=== PATIENT | female | born 1930 | race Caucasian/White ===

== ENCOUNTER 2019-08-11 14:14 | Inpatient (IN) ==
--- NOTE | 2019-08-11 14:32 | Emergency Department Note ---
ED Disposition Clinical Impression: Dehydration, Hypernatremia, Severe sepsis Urinary tract infection Qualifiers: Urinary tract infection type: site unspecified Hematuria presence: without hematuria Qualified Code(s): N39.0 - Urinary tract infection, site not specified Disposition: Admitted As Inpatient Condition on Discharge: Serious Referrals: Provider,Referral, [Referring] - - Critical Care Critical Care Time: No Attestation: On 08/11/19, the high probability of a clinically significant, sudden or life threatening deterioration of the following system(s) required my full and direct attention, intervention and personal management. The time I documented below is in addition to time spent performing reported procedures but includes the following listed in this critical care notation. Medical Decision Making - Vikas Inquiry Pt receiving controlled substance: No Vital Signs: 08/11/19 14:15 08/11/19 15:19 08/11/19 16:16 Temperature 97.6 F Temperature Source Rectal Pulse Rate [Right Radial] 97 H 94 H 91 H Respiratory Rate 18 Blood Pressure [Right Arm] 116/79 147/99 H 185/78 H Blood Pressure Mean [Right Arm] 91 115 113 Blood Pressure Source [Right Arm] Automatic Cuff Blood Pressure Position [Right Arm] Supine 02 Sat by Pulse Oximetry 96 97 99 Oxygen Delivery Method Nasal Cannula Oxygen Flow Rate (LPM) 2 - Lab Data Lab Results 08/11/19 14:17: Urine Color Yellow, Urine Appearance Clear, Urine pH 5.5, Ur Specific [place] 1.020, Urine Protein 2+, Urine Glucose (UA) Negative, Urine Ketones Negative, Urine Blood 2+, Urine Nitrate Negative, Urine Bilirubin Negative, Urine Urobilinogen 0.2, Ur Leukocyte Esterase 2+ A, Urine RBC 5-10, Urine WBC 50-100, Ur Squamous Epith Cells 20-50, Ur Transition Epith Cell 5-10, Amorphous Sediment 2+, Urine Bacteria None 08/11/19 14:30: WBC 19.9 H, RBC 5.62 H, Hgb 16.2, Hct 54.5 H, MCV 97.1, MCH 28.9, MCHC 29.8 L, RDW 15.8, Plt Count 316, MPV 9.8, Neut % (Auto) 87.1 H, Lymph % (Auto) 9.0 L, Bennett % (Auto) 2.9, Eos % (Auto) 0.2, Baso % (Auto) 0.7, Neut # (Auto) 17.7 H, Lymph # (Auto) 1.8, Bennett # (Auto) 0.6, Eos # (Auto) 0.1, Baso # (Auto) 0.2, Total Counted 100, Neutrophils % (Manual) 79 H, Lymphocytes % (Manual) 17, Monocytes % (Manual) 4, Platelet Estimate Normal, RBC Morphology Normal 08/11/19 14:30: Sodium 181 H*, Potassium 3.8, Chloride 140 H, Carbon Dioxide 26, Anion Gap 18.8 H, BUN 81 H, Creatinine 1.67 H, Estimated Creat Clear 23, Estimated GFR 29 L, Est GFR ( Amer) 35 L, Glucose 159 H, Calcium 9.4, Total Bilirubin 0.7, AST 53 H, ALT 28, Alkaline Phosphatase 105, Troponin I < 0.02, Total Protein 9.0 H, Albumin 3.1 L, Globulin 5.9 H, Albumin/Globulin Ratio 0.5 L 08/11/19 14:30: Lactate 3.3 H Result diagrams: 08/11/19 14:30 08/11/19 14:30 Orders (Tests/Meds): ED MEDICATIONS Generic Name Dose Route Start Last Admin Trade Name Freq PRN Reason Stop Dose Admin Ceftriaxone Sodium 1 gm/ 50 mls @ 100 mls/hr 08/11/19 15:45 08/11/19 15:51 Sodium Chloride IV 08/25/19 15:44 100 mls/hr Q24H REINIER Administration Protocol Discontinued Medications Generic Name Dose Route Start Last Admin Trade Name Freq PRN Reason Stop Dose Admin Sodium Chloride 1,000 mls @ 999 mls/hr 08/11/19 15:30 08/11/19 15:31 Sod Chlor 0.9% 1000ml Bag IV 08/11/19 16:30 999 mls/hr .Q1H1M REINIER Administration ORDERS Category Date Time Status Troponin I Q3H Lab 08/11/19 17:30 Ordered Troponin I Q3H Lab 08/11/19 20:30 Ordered Blood Culture Stat Micro 08/11/19 14:30 Received Urine Culture Stat Micro 08/11/19 14:17 Received Wound Culture and Gram Stain Stat Micro 08/11/19 14:20 Results - Radiology Data #1 Image(s): Chest Image Reviewed: Yes I reviewed the patient's radiology image Elevated right diaphragm, no acute disease - ECG Data Tracing #1 EKG interpreted by Michael Caban MD: Rhythm: sinus Rate: 94 Leon: normal Ectopy: none Conduction: Short CO [address] Segment Changes: none T Wave Changes: none Q Waves: Inferior For R wave progression. Low voltage QRS No prior EKGs available for comparison. - Physician Consults Physician Consulted: María for Dr. Troy Time: 17:42 Reason -: Admission Comment/Response: I had a long discussion with Dr. Daniel. He preferred that the patient be transferred to a tertiary care center due to the magnitude of her hypernatremia. I had a long discussion also with the family and with the patient's son by phone. The patient's son is a family physician in [place]. They do not want the patient transferred. They understand poor prognosis and risk of and are okay with that. She is DNR. They are agreeable to IV fluids and antibiotics. They state that family even had a discussion as to whether to transfer her from the [facility] to the emergency room, family members preferred not to except for the who wanted her transported here. Agrees to admit the patient to the hospital. We discussed the patient's clinical information, including history, exam, laboratory and radiology results and ED course. Per hospital procedure, I will write temporary bridge inpatient orders on the patient. Specific orders requested by the admitting physician: Bolus an additional 1 L lactated Ringer's. D5 one half normal saline at 100 cc/h. Recheck electrolytes every 6 hours. Continue Rocephin. General Adult HPI - General Chief complaint: Altered Mental Status Stated complaint: lethargic Time Seen by Provider: 08/11/19 14:15 - History of Present Illness HPI narrative: Brought in by ambulance from [facility]. She is nonverbal. Reported history is that she is being sent in for being lethargic and not eating. Records sent from [facility] with the patient show that she had lab work done today which showed a white blood cell count of 19.3, BUN 76 creatinine 1.3, sodium 183. - Related Data Home Medications Medication Instructions Recorded Confirmed Acetaminophen 500 mg PO BID 08/11/19 08/11/19 Ascorbic Acid [Vitamin C] 500 mg PO DAILY 08/11/19 08/11/19 Lactulose [Lactulose 10gm/15ml 30 ml PO DAILY 08/11/19 08/11/19 Oral Soln] Loratadine [Claritin] 10 mg PO DAILY 08/11/19 08/11/19 Mirtazapine 7.5 mg PO HS 08/11/19 08/11/19 Allergies Allergy/AdvReac Type Severity Reaction Status Date / Time Penicillins Allergy Verified 09/29/18 12:19 pergogesic Allergy Uncoded 09/29/18 12:19 [facility] History - Hepatitis A Screen Attestation statement:: This patient has been screened for Hepatitis A risk factors. I have reviewed the patient's past medical history: Yes Medical History: Denies:: Diabetes Mellitus Type 1, Diabetes Mellitus Type 2 - Social History Alcohol Intake: never Occupational Status: retired, disabled ROS Obtained: Yes unobtainable due to mental status Physical Exam - General General appearance: other Comment: Lays with eyes closed. Does not follow any commands. Nonverbal. Does not open eyes to command, but when I try to open her eyes manually, she squints them closed. No distress. Debilitated. Moves both upper extremities to painful stimulus, does not move lower extremities. - Head Head exam: atraumatic, normocephalic - Eye Eye exam: Present: PERRL, EOMI - ENT ENT exam: Present: mucous membranes dry, other (Dried food on teeth and mucous membranes) - Neck Neck exam: Present: normal inspection, trachea midline - Chest Chest inspection: Present: normal inspection, symmetric chest wall rise - Respiratory Respiratory exam: Present: normal lung sounds bilaterally. Absent: respiratory distress - Cardiovascular Cardiovascular exam: Present: regular rate, normal rhythm - Abdominal Exam Abdominal exam: Present: soft. Absent: distention, guarding - Extremities Exam Extremities exam: Present: normal capillary refill - Neurological Exam Neurological exam: Present: other (See general appearance) - Skin Skin exam: Present: warm, dry - Other Other exam information: Left hand is edematous. There are vesicles on the palm of the hand which contain clear fluid. There is a small superficial laceration on the dorsum of the left hand which has Steri-Strips in place. There is erythema of all of the fingers and most of the hand. No ascending lymphangitis.
[2019-08-11 14:43] LABS: Microscopic, Urine URINE MICROSCOPIC (MICROSCOPIC)
[2019-08-11 14:44] LABS: Appearance,Urine CLEAR (Clear); Bilirubin,Urine Negative (Negative); Blood, Urine 2+ (Negative); Color,Urine YELLOW (Yellow); Glucose,Urine (UA) Negative (Negative); Ketones,Urine Negative (Negative); Leukocyte Esterase,Urine 2+ (Negative); PH,Urine 5.5 (5.0-8.5); Protein,Urine 2+ (Negative); Urobilinogen,Urine 0.2 EU/dl (0.2)
[2019-08-11 14:46] LABS: Basophils # 0.2 K/mm3 (0-0.2); Basophils % 0.7 % (0.1-2.0); Eosinophils # 0.1 K/mm3 (0.0-0.4); Eosinophils % 0.2 % (0.1-12.0); Hematocrit 54.5 % (37.0-47.0); Hemoglobin 16.2 g/dL (12.2-16.2); Lymphocytes # 1.8 K/mm3 (0.7-4.5); Mean Corpuscular HGB Conc 29.8 g/dL (31.8-35.4); Mean Corpuscular Volume 97.1 fl (81-99); Mean Platelet Volume 9.8 fl (7.4-10.4); Monocytes # 0.6 K/mm3 (0.1-1.0); Monocytes % 2.9 % (1.7-9.3); Neutrophils # 17.7 K/mm3 (1.8-7.8); Neutrophils % 87.1 % (37.0-80.0); Platelet Count 316 K/mm3 (142-424); Red Blood Count 5.62 M/mm3 (4.20-5.40); Red Cell Distribution Width 15.8 % (11.5-17.5)
[2019-08-11 14:50] LABS: White Blood Count 19.9 K/mm3 (4.8-10.8)
[2019-08-11 15:02] LABS: Amorphous Sediment,Urine 2+ /lpf; Squamous Epithelial Cell,Urine 20-50 #/hpf (0-5); WBC,Urine 50-100 #/hpf (0-3)
[2019-08-11 15:02] LABS: Alanine Aminotransferase 28 U/L (9-52); Albumin Level 3.1 g/dL (3.4-5.0); Albumin/Globulin Ratio 0.5 (1.1-1.8); Alkaline Phosphatase 105 U/L (46-116); Aspartate Amino Transferase 53 U/L (15-37); Bilirubin,Total 0.7 mg/dL (0.2-1.0); Calcium 9.4 mg/dL (8.5-10.1); Carbon Dioxide 26 mmol/L (21.0-32.0); Globulin 5.9 gm/dl (1.3-3.2); Glucose 159 mg/dL (74-106)
[2019-08-11 15:03] LABS: Lymphocytes % 17 % (10-50); Monocytes % 4 % (2-9); Neutrophils % 79 % (42-76); Total Cells Counted 100
[2019-08-11 15:04] LABS: RBC Morphology Normal
[2019-08-11 15:07] LABS: Chloride 140 mmol/L (98-107)
[2019-08-11 15:14] LABS: Anion Gap 18.8 mEq/L (5-15)
[2019-08-11 15:16] LABS: Blood Urea Nitrogen 81 mg/dL (7-18); Sodium 181 mmol/L (137-145)
--- NOTE | 2019-08-11 19:17 | History & Physical Report ---
*Admission Date: 08/11/19 *Chief complaint: Obtundation, dehydration [facility] History Medical History: Denies:: Diabetes Mellitus Type 1, Diabetes Mellitus Type 2 *Have you ever received a pneumonia vaccine?: No (unknown) *Have you received a flu vaccine this season?: No (unknown) - *Social History Smoking Status: Unknown if ever smoked Alcohol Intake: never *Occupational Status:: other *Travel in the last 8 weeks: None Meds Home Medications Medication Instructions Recorded Confirmed Type Acetaminophen 500 mg PO BID 08/11/19 08/11/19 History Ascorbic Acid [Vitamin C] 500 mg PO DAILY 08/11/19 08/11/19 History Lactulose [Lactulose 10gm/15ml 30 ml PO DAILY 08/11/19 08/11/19 History Oral Soln] Loratadine [Claritin] 10 mg PO DAILY 08/11/19 08/11/19 History Mirtazapine 7.5 mg PO HS 08/11/19 08/11/19 History Allergies Allergy/AdvReac Type Severity Reaction Status Date / Time Penicillins Allergy Verified 09/29/18 12:19 pergogesic Allergy Uncoded 09/29/18 12:19 Exam Vital signs and Labs for Last 24 Hours: Temp Pulse Resp BP Pulse Ox 98 F 80 18 140/80 98 08/11/19 18:57 08/11/19 18:57 08/11/19 18:57 08/11/19 18:57 08/11/19 17:52 Laboratory Results - last 24 hr 08/11/19 14:17: Urine Color Yellow, Urine Appearance Clear, Urine pH 5.5, Ur Specific [place] 1.020, Urine Protein 2+, Urine Glucose (UA) Negative, Urine Ketones Negative, Urine Blood 2+, Urine Nitrate Negative, Urine Bilirubin Negative, Urine Urobilinogen 0.2, Ur Leukocyte Esterase 2+ A, Urine RBC 5-10, Urine WBC 50-100, Ur Squamous Epith Cells 20-50, Ur Transition Epith Cell 5-10, Amorphous Sediment 2+, Urine Bacteria None 08/11/19 14:30: WBC 19.9 H, RBC 5.62 H, Hgb 16.2, Hct 54.5 H, MCV 97.1, MCH 28.9, MCHC 29.8 L, RDW 15.8, Plt Count 316, MPV 9.8, Neut % (Auto) 87.1 H, Lymph % (Auto) 9.0 L, [place] % (Auto) 2.9, Eos % (Auto) 0.2, Baso % (Auto) 0.7, Neut # (Auto) 17.7 H, Lymph # (Auto) 1.8, [place] # (Auto) 0.6, Eos # (Auto) 0.1, Baso # (Auto) 0.2, Total Counted 100, Neutrophils % (Manual) 79 H, Lymphocytes % (Manual) 17, Monocytes % (Manual) 4, Platelet Estimate Normal, RBC Morphology Normal 08/11/19 14:30: Sodium 181 H*, Potassium 3.8, Chloride 140 H, Carbon Dioxide 26, Anion Gap 18.8 H, BUN 81 H, Creatinine 1.67 H, Estimated Creat Clear 23, Estimated GFR 29 L, Est GFR ( Amer) 35 L, Glucose 159 H, Calcium 9.4, Total Bilirubin 0.7, AST 53 H, ALT 28, Alkaline Phosphatase 105, Troponin I < 0.02, Total Protein 9.0 H, Albumin 3.1 L, Globulin 5.9 H, Albumin/Globulin Ratio 0.5 L 08/11/19 14:30: Lactate 3.3 H I & O for Last 24 hours: Intake & Output 08/08/19 08/09/19 08/10/19 08/11/19 23:59 23:59 23:59 23:59 Weight 62.596 kg Microbiology Reports for the Last 24 Hours: Microbiology 08/11/19 14:20 Hand,Left - Wound Gram Stain - Final
[2019-08-11 21:19] LABS: Anion Gap 17.2 mEq/L (5-15)
[2019-08-11 21:20] LABS: Calcium 8.4 mg/dL (8.5-10.1)
--- NOTE | 2019-08-12 00:28 | History & Physical Report ---
*Admission Date: 08/11/19 *Chief complaint: AMS, obtunded, dehydrated *History of present illness: Patient was assessed on 08/11/2019 at 6:15 PM. Ms. Lan is an 89-year-old female who resides at [facility] and has severely advanced Alzheimer's. She presented to the ER at the request of her due to obtundation and altered breathing. Of note she is dependent on nursing and her for full ADL support including feeding and drinking. Her daughters and son-in-law are at bedside on interview in the ER. Family reports that the patient has become more altered over the past week with change in her breathing pattern, less responsive to stimuli, and showing significant decline. Upon arrival to the ER she was noted to have severely elevated sodium of 181 and chloride of 140. Free water deficit of approximately 8 L. Patient is DNR and the family was very adamant that they did not want her transferred to a tertiary care center for higher level of care. They preferred for her to be admitted locally with treatment for her conditions understanding that this is not the optimal situation and she is at high risk for decline or serious complication. On my assessment she was nonresponsive to verbal commands. Groaned with abdominal exam but otherwise did not withdraw or localize to painful stimuli. Pupils poorly reactive, not fixed or dilated either. Further review of ER work-up shows that she has severe sepsis with elevated lactate, acute renal failure, concern for UTI, market hyp ernatremia/hyperchloremia, and severe dehydration. Given patient's baseline end-stage Alzheimer's, I had a discussion with family about goals of care and this likely being part of the dying process. They stated understanding and wanted to initially treat her sepsis with antibiotics and hypernatremia with fluid resuscitation. Admitted to ICU for further management and close observation of electrolyte correction. [facility] History I have reviewed the patient's past medical history: Yes (Per family) Medical History: Reports:: Hyperlipidemia, Hypertension Denies:: Diabetes Mellitus Type 1, Diabetes Mellitus Type 2 *Have you ever received a pneumonia vaccine?: Yes (UNABLE TO DETERMINE R/T UNABLE TO COMMUNICATE. PT IS FROM [facility] F[facility]ILITY.) *Have you received a flu vaccine this season?: Yes (UNABLE TO DETERMINE R/T UNABLE TO COMMUNICATE. PT IS FROM [facility] FACILITY.) Comment:: Alzheimer disease - *Social History Smoking Status: Unknown if ever smoked Alcohol Intake: never *Occupational Status:: retired Housing: correction *Travel in the last 8 weeks: None Family Hx:: Unable to obtain Review of Systems - Review of Systems Review of systems:: unable to obtain (Due to patient obtundation) Meds Home Medications Medication Instructions Recorded Confirmed Type Acetaminophen 500 mg PO BID 08/11/19 08/11/19 History Ascorbic Acid [Vitamin C] 500 mg PO DAILY 08/11/19 08/11/19 History Lactulose [Lactulose 10gm/15ml 30 ml PO DAILY 08/11/19 08/11/19 History Oral Soln] Loratadine [Claritin] 10 mg PO DAILY 08/11/19 08/11/19 History Mirtazapine 7.5 mg PO HS 08/11/19 08/11/19 History Allergies Allergy/AdvReac Type Severity Reaction Status Date / Time Penicillins Allergy Verified 09/29/18 12:19 pergogesic Allergy Uncoded 09/29/18 12:19 Exam Vital signs and Labs for Last 24 Hours: Temp Pulse Resp BP Pulse Ox 97.5 F L 80 22 131/52 L 99 08/11/19 20:00 08/11/19 22:00 08/11/19 22:00 08/11/19 22:00 08/11/19 22:00 Laboratory Results - last 24 hr 08/11/19 14:17: Urine Color Yellow, Urine Appearance Clear, Urine pH 5.5, Ur Specific [place] 1.020, Urine Protein 2+, Urine Glucose (UA) Negative, Urine Ketones Negative, Urine Blood 2+, Urine Nitrate Negative, Urine Bilirubin Negative, Urine Urobilinogen 0.2, Ur Leukocyte Esterase 2+ A, Urine RBC 5-10, Urine WBC 50-100, Ur Squamous Epith Cells 20-50, Ur Transition Epith Cell 5-10, Amorphous Sediment 2+, Urine Bacteria None 08/11/19 14:30: WBC 19.9 H, RBC 5.62 H, Hgb 16.2, Hct 54.5 H, MCV 97.1, MCH 28.9, MCHC 29.8 L, RDW 15.8, Plt Count 316, MPV 9.8, Neut % (Auto) 87.1 H, Lymph % (Auto) 9.0 L, Gonzales % (Auto) 2.9, Eos % (Auto) 0.2, Baso % (Auto) 0.7, Neut # (Auto) 17.7 H, Lymph # (Auto) 1.8, Gonzales # (Auto) 0.6, Eos # (Auto) 0.1, Baso # (Auto) 0.2, Total Counted 100, Neutrophils % (Manual) 79 H, Lymphocytes % (Manual) 17, Monocytes % (Manual) 4, Platelet Estimate Normal, RBC Morphology Normal 08/11/19 14:30: Sodium 181 H*, Potassium 3.8, Chloride 140 H, Carbon Dioxide 26, Anion Gap 18.8 H, BUN 81 H, Creatinine 1.67 H, Estimated Creat Clear 23, Estimated GFR 29 L, Est GFR ( Amer) 35 L, Glucose 159 H, Calcium 9.4, Total Bilirubin 0.7, AST 53 H, ALT 28, Alkaline Phosphatase 105, Troponin I < 0.02, Total Protein 9.0 H, Albumin 3.1 L, Globulin 5.9 H, Albumin/Globulin Ratio 0.5 L 08/11/19 14:30: Lactate 3.3 H 08/11/19 19:05: Lactate 2.5 H 08/11/19 21:03: Sodium 179 H*, Potassium 3.2 L, Chloride 141 H, Carbon Dioxide 24, Anion Gap 17.2 H, BUN 73 H, Creatinine 1.45 H, Estimated Creat Clear 25, Estimated GFR 34 L, Est GFR ( Amer) 41 L, Glucose 203 H D, Calcium 8.4 L D 08/11/19 21:03: Lactate 2.0 I & O for Last 24 hours: Intake & Output 08/09/19 08/10/19 08/11/19 08/12/19 23:59 23:59 23:59 23:59 Intake Total 536 / 536 Output Total 625 / 625 Balance -89 / -89 Weight 60.328 kg Microbiology Reports for the Last 24 Hours: Microbiology 08/11/19 14:20 Hand,Left - Wound Gram Stain - Final - Constitutional moderate distress, cachectic, chronically ill appearing, disheveled, obtunded - *Routine HEENT Exam Comments: Pupils equal and round, sluggish with minimal response to bright light, she was trying to close her eyes as I open them on exam; loss of bitemporal fat and periorbital fat. Mucous membranes dry - *Routine Neck Exam Present: supple. Absent: lymphadenopathy - *Routine Respiratory Exam Present: CTA bilaterally. Absent: rhonchi, wheezes, crackles - *Routine Cardiovascular Exam Present: tachycardia. Absent: murmur - *Routine Abdominal Exam Present: soft, normoactive bowel sounds, tenderness (Crohn's with palpation diffusely) - *Routine Extremities Exam Present: edema (Trace). Absent: cyanosis, clubbing Comments: Large blister and palm of left hand with serous fluid - *Routine Skin Exam Present: dry, pallor, warm. Absent: rash - *Routine Neurological Exam Present: altered mental status Intermittent tremor in right hand no focalization to, painful stimuli, GCS 3 (1,1,1) Assessment and Plan (1) Alzheimer disease Current visit: Yes Status: Chronic Qualifiers: Alzheimer's disease onset: late-onset Dementia behavioral disturbance: with behavioral disturbance Qualified Code(s): G30.1 - Alzheimer's disease with late onset; F02.81 - Dementia in other diseases classified elsewhere with behavioral disturbance Category: Medical Code(s): G30.9 - Alzheimer's disease, unspecified; F02.80 - Dementia in other diseases classified elsewhere without behavioral disturbance Severe stage VII Alzheimer's. Discussed patient's status with family. At this time I feel her progression is terminal. Her current condition is likely sequela of that progression. While we discussed goals of care during admission for treating the acute issues that are present, we will continue to have discussions with family moving forward as we discussed disposition pending response to treatment for potential transition to hospice/hospice-like care at time of discharge. (2) Hyperchloremia Current visit: Yes Status: Acute Category: Medical Code(s): E87.8 - Other disorders of electrolyte and fluid balance, not elsewhere classified (3) Acute kidney failure Current visit: Yes Status: Acute Qualifiers: Acute renal failure type: unspecified Qualified Code(s): N17.9 - Acute kidney failure, unspecified Category: Medical Code(s): N17.9 - Acute kidney failure, unspecified (4) Dehydration Current visit: Yes Status: Acute Category: Medical Code(s): E86.0 - Dehydration (5) Hypernatremia Current visit: Yes Status: Acute Category: Medical Code(s): E87.0 - Hyperosmolality and hypernatremia (6) Severe sepsis Current visit: Yes Status: Acute Category: Medical Code(s): A41.9 - Sepsis, unspecified organism; R65.20 - Severe sepsis without septic shock (7) Urinary tract infection Current visit: Yes Status: Acute Qualifiers: Urinary tract infection type: site unspecified Hematuria presence: without hematuria Qualified Code(s): N39.0 - Urinary tract infection, site not specified Category: Medical Code(s): N39.0 - Urinary tract infection, site not specified - Assessment and plan all Dx Assessment and Plan for all problems:: Critically ill 89-year-old female with severe electrolyte disturbances, dehydration, severe sepsis, UTI, endorgan dysfunction with elevated lactate. Free water deficit approximately 8.4 L. Initiated on D5 half-normal saline at 140 an hour with goal of correction of 10 to 12 mEq in 24 hours. Close monitoring with labs every 6 hours for the first 24 hours. Additionally given a dose of ceftriaxone for her sepsis and UTI. Cultures obtained and pending. Extensive discussion about severity of patient's illness with family. At this time we will take her care today at a time as her condition is tenuous at best with high probability of adverse event including but not limited to seizures, cerebral edema, respiratory distress, or . Family is very clear that they do not want aggressive measures taken to save her life if she were to go into cardiac or respiratory arrest however they do want to treat the acute issues and. They appear to have good insight and understanding of her current condition, and understand our plan moving forward. Admitted to ICU for further management. Usual precautions. DNR. N.p.o.
[2019-08-12 03:08] LABS: Calcium 8.4 mg/dL (8.5-10.1); Phosphorous 3.4 mg/dL (2.4-4.9)
[2019-08-12 03:22] LABS: Anion Gap 17.5 mEq/L (5-15)
[2019-08-12 10:01] LABS: Basophils % 0.1 % (0.1-2.0); Eosinophils % 0.1 % (0.1-12.0); Hematocrit 41.6 % (37.0-47.0); Lymphocytes # 1.7 K/mm3 (0.7-4.5); Mean Corpuscular HGB Conc 30.9 g/dL (31.8-35.4); Mean Corpuscular Volume 94.3 fl (81-99); Mean Platelet Volume 10.5 fl (7.4-10.4); Monocytes # 0.4 K/mm3 (0.1-1.0); Monocytes % 1.6 % (1.7-9.3); Neutrophils # 21.8 K/mm3 (1.8-7.8); Platelet Count 203 K/mm3 (142-424); Red Blood Count 4.41 M/mm3 (4.20-5.40); Red Cell Distribution Width 14.8 % (11.5-17.5); White Blood Count 23.9 K/mm3 (4.8-10.8)
[2019-08-12 10:21] LABS: Albumin Level 2.3 g/dL (3.4-5.0); Albumin/Globulin Ratio 0.5 (1.1-1.8); Bilirubin,Total 0.7 mg/dL (0.2-1.0); Calcium 7.9 mg/dL (8.5-10.1); Globulin 4.5 gm/dl (1.3-3.2); Total Protein,Serum 6.8 g/dL (6.4-8.2)
--- NOTE | 2019-08-12 10:24 | Pharmacy Consult Notes ---
[facility] Pharmacy VTE Monitoring - Patient Demographics Admission date: 08/12/19 Report Date: 08/12/19 Time: 10:23 Allergies/Adverse Reactions: Patient Allergies acetaminophen [From Percogesic] Allergy (Verified 08/12/19 08:12) Unknown allergy reaction diphenhydramine [From Percogesic] Allergy (Verified 08/12/19 08:12) Unknown allergy reaction Penicillins Allergy (Verified 08/12/19 08:12) Unknown allergy reaction phenyltoloxamine [From Percogesic] Allergy (Verified 08/12/19 08:12) Unknown allergy reaction Height: 1.73 m Weight: 60.328 kg Patient Problems: Current Active Problems Dehydration (Acute) Hypernatremia (Acute) Urinary tract infection (Acute) Severe sepsis (Acute) Alzheimer disease (Chronic) Hyperchloremia (Acute) Acute kidney failure (Acute) - VTE Risk Labs: VTE Related Lab Results Hgb 16.2 g/dL (12.2-16.2) 08/11/19 14:30 Hct 41.6 % (37.0-47.0) 08/12/19 09:31 Plt Count 203 K/mm3 (142-424) D 08/12/19 09:31 BUN 70 mg/dL (7-18) H 08/12/19 02:45 Creatinine 1.60 mg/dL (0.55-1.02) H 08/12/19 02:45 Estimated Creat Clear 23 mL/min (50-200) 08/12/19 02:45 VTE Score: 3 VTE Risk Level: Low Risk - Prophylaxis Types of VTE Prophylaxis: TEDS Knee High (BERNABE HOSE ORDER PLACED)
[2019-08-12 10:38] LABS: Anion Gap 16.7 mEq/L (5-15)
[2019-08-12 11:24] LABS: Lymphocytes % 11 % (10-50); Myelocytes % 1 (0-1); Neutrophils % 88 % (42-76); Total Cells Counted 100
[2019-08-12 11:25] LABS: RBC Morphology Normal
[2019-08-12 14:42] LABS: Hemoglobin 12.8 g/dL (12.2-16.2)
[2019-08-12 17:34] LABS: Albumin Level 2.2 g/dL (3.4-5.0); Albumin/Globulin Ratio 0.5 (1.1-1.8); Bilirubin,Total 0.6 mg/dL (0.2-1.0); Calcium 7.8 mg/dL (8.5-10.1); Globulin 4.5 gm/dl (1.3-3.2); Total Protein,Serum 6.7 g/dL (6.4-8.2)
[2019-08-12 18:06] LABS: Anion Gap 16.1 mEq/L (5-15)
--- NOTE | 2019-08-12 18:22 | Progress Note ---
Internal Medicine - PN: Subj *Date: 08/12/19 *Time: 08:45 Interval history: Ms. Knapp'mariya sodium has shown slight improvement. No acute distress this morning. No significant improvement to responsiveness. Afebrile. Urine beginning to clear in Roman. Family at bedside this morning and updated of progress. No nausea, diarrhea or bowel movement, shortness of breath, hypotension. Seizure-like activity overnight. Stable on room air Exam Vital signs and Labs for Last 24 Hours: Temp Pulse Resp BP Pulse Ox 98.0 F 85 18 110/57 L 100 08/12/19 18:00 08/12/19 18:00 08/12/19 18:00 08/12/19 18:00 08/12/19 18:00 Laboratory Results - last 24 hr 08/11/19 14:17: Urine Color Yellow, Urine Appearance Clear, Urine pH 5.5, Ur Specific [place] 1.020, Urine Protein 2+, Urine Glucose (UA) Negative, Urine Ket ones Negative, Urine Blood 2+, Urine Nitrate Negative, Urine Bilirubin Negative, Urine Urobilinogen 0.2, Ur Leukocyte Esterase 2+ A, Urine RBC 5-10, Urine WBC 50-100, Ur Squamous Epith Cells 20-50, Ur Transition Epith Cell 5-10, Amorphous Sediment 2+, Urine Bacteria None 08/11/19 19:05: Lactate 2.5 H 08/11/19 21:03: Sodium 179 H*, Potassium 3.2 L, Chloride 141 H, Carbon Dioxide 24, Anion Gap 17.2 H, BUN 73 H, Creatinine 1.45 H, Estimated Creat Clear 25, Estimated GFR 34 L, Est GFR ( Amer) 41 L, Glucose 203 H D, Calcium 8.4 L D 08/11/19 21:03: Lactate 2.0 08/12/19 02:45: Sodium 179 H*, Potassium 3.5, Chloride 140 H, Carbon Dioxide 25, Anion Gap 17.5 H, BUN 70 H, Creatinine 1.60 H, Estimated Creat Clear 23, Estimated GFR 30 L, Est GFR ( Amer) 37 L, Glucose 204 H, Calcium 8.4 L, Phosphorus 3.4, Magnesium 3.0 H 08/12/19 09:31: WBC 23.9 H*, RBC 4.41, Hgb 12.8 D, Hct 41.6, MCV 94.3, MCH 29.1, MCHC 30.9 L, RDW 14.8, Plt Count 203 D, MPV 10.5 H, Neut % (Auto) 91.0 H, Lymph % (Auto) 7.0 L, [place] % (Auto) 1.6 L, Eos % (Auto) 0.1, Baso % (Auto) 0.1, Neut # (Auto) 21.8 H, Lymph # (Auto) 1.7, [place] # (Auto) 0.4, Eos # (Auto) 0.0, Baso # (Auto) 0.0, Total Counted 100, Neutrophils % (Manual) 88 H, Lymphocytes % (Manual) 11, Myelocytes % 1, Platelet Estimate Normal, RBC Morphology Normal 08/12/19 09:31: Sodium 177 H*, Potassium 2.7 L* D, Chloride 139 H, Carbon Dioxide 24, Anion Gap 16.7 H, BUN 66 H, Creatinine 1.38 H, Estimated Creat Clear 26, Estimated GFR 36 L, Est GFR ( Amer) 44 L, Glucose 200 H, Calcium 7.9 L, Total Bilirubin 0.7, AST 33 D, ALT 20 D, Alkaline Phosphatase 90, Total Protein 6.8, Albumin 2.3 L D, Globulin 4.5 H, Albumin/Globulin Ratio 0.5 L 08/12/19 17:11: Sodium 175 H*, Potassium 3.1 L, Chloride 138 H, Carbon Dioxide 24, Anion Gap 16.1 H, BUN 57 H, Creatinine 1.28 H, Estimated Creat Clear 28, Estimated GFR 39 L, Est GFR ( Amer) 48 L, Glucose 98 D, Calcium 7.8 L, Total Bilirubin 0.6, AST 32, ALT 21, Alkaline Phosphatase 81, Total Protein 6.7, Albumin 2.2 L, Globulin 4.5 H, Albumin/Globulin Ratio 0.5 L I & O for Last 24 hours: Intake & Output 08/09/19 08/10/19 08/11/19 08/12/19 23:59 23:59 23:59 23:59 Intake Total 536 / 721 2457 / 2457 Output Total 625 / 685 1691 / 1691 Balance -89 / 36 766 / 766 Weight 60.328 kg Microbiology Reports for the Last 24 Hours: Microbiology 02/14/20 14:20 Hand,Left - Wound Gram Stain - Final 08/11/19 14:20 Hand,Left - Wound Wound Culture - Preliminary Gram Positive Cocci 08/11/19 14:17 Urine,Catheterized Urine Culture - Preliminary Gram Negative Rods Narrative: - Constitutional mild distress, cachectic, chronically ill appearing, disheveled, obtunded - *Routine HEENT Exam Pupils equal and round, sluggish with minimal response to bright light, loss of bitemporal fat and periorbital fat. Mucous membranes dry - *Routine Neck Exam Present: supple. Absent: lymphadenopathy - *Routine Respiratory Exam Present: CTA bilaterally. Absent: rhonchi, wheezes, crackles; bases remain clear - *Routine Cardiovascular Exam Present: tachycardia. Absent: murmur - *Routine Abdominal Exam Present: soft, normoactive bowel sounds, tenderness (Crohn's with palpation diffusely) - *Routine Extremities Exam Present: edema (Trace). Absent: cyanosis, clubbing Comments: Large blister and palm of left hand with serous fluid draining. No significant change from initial exam. Finger swollen on left hand with slight discoloration of distal pointer and ring finger - *Routine Skin Exam Present: dry, pallor, warm. Absent: rash - *Routine Neurological Exam Present: altered mental status; Intermittent tremor in right hand no focalization to, painful stimuli, GCS 3 (1,1,1) Assessment and Plan (1) Alzheimer disease Current visit: Yes Status: Chronic Qualifiers: Alzheimer's disease onset: late-onset Dementia behavioral disturbance: with behavioral disturbance Qualified Code(s): G30.1 - Alzheimer's disease with late onset; F02.81 - Dementia in other diseases classified elsewhere with behavioral disturbance Category: Medical Code(s): G30.9 - Alzheimer's disease, unspecified; F02.80 - Dementia in other diseases classified elsewhere without behavioral disturbance (2) Hyperchloremia Current visit: Yes Status: Acute Category: Medical Code(s): E87.8 - Other disorders of electrolyte and fluid balance, not elsewhere classified (3) Acute kidney failure Current visit: Yes Status: Acute Qualifiers: Acute renal failure type: unspecified Qualified Code(s): N17.9 - Acute kidney failure, unspecified Category: Medical Code(s): N17.9 - Acute kidney failure, unspecified (4) Dehydration Current visit: Yes Status: Acute Category: Medical Code(s): E86.0 - Dehydration (5) Hypernatremia Current visit: Yes Status: Acute Category: Medical Code(s): E87.0 - Hyperosmolality and hypernatremia (6) Severe sepsis Current visit: Yes Status: Acute Category: Medical Code(s): A41.9 - Sepsis, unspecified organism; R65.20 - Severe sepsis without septic shock (7) Urinary tract infection Current visit: Yes Status: Acute Qualifiers: Urinary tract infection type: site unspecified Hematuria presence: without hematuria Qualified Code(s): N39.0 - Urinary tract infection, site not specified Category: Medical Code(s): N39.0 - Urinary tract infection, site not specified - Assessment and plan all Dx Assessment and Plan for all problems:: 89-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 Continue ceftriaxone for UTI. Continue every 8 monitoring of sodium levels while we gradually replace her free water deficit. Continue seizure precautions at this time. Had additional discussion with family today about goals of care during hospitalization as well as if patient improves to the point of being stable for discharge, once getting back to the long-term. They plan to talk to patient's about her grave condition and terminal diagnosis and we will continue to have discussions on goals of care moving forward. Patient's condition critical, prognosis grave, continue to take progress day by day as the tenuous nature of her hyper natremia has high probability of . continues to require Neuro checks, q2 vitals, ICU level care.
[2019-08-13 01:49] LABS: Albumin Level 2.1 g/dL (3.4-5.0); Albumin/Globulin Ratio 0.5 (1.1-1.8); Bilirubin,Total 0.5 mg/dL (0.2-1.0); Calcium 7.4 mg/dL (8.5-10.1); Globulin 4.2 gm/dl (1.3-3.2); Total Protein,Serum 6.3 g/dL (6.4-8.2)
[2019-08-13 01:54] LABS: Anion Gap 17.1 mEq/L (5-15)
[2019-08-13 09:25] LABS: Basophils % 0.2 % (0.1-2.0); Eosinophils # 0.2 K/mm3 (0.0-0.4); Eosinophils % 1.4 % (0.1-12.0); Hematocrit 37.7 % (37.0-47.0); Lymphocytes # 1.8 K/mm3 (0.7-4.5); Lymphocytes % 12.8 % (10-50); Mean Corpuscular HGB Conc 29.7 g/dL (31.8-35.4); Mean Corpuscular Volume 95.9 fl (81-99); Mean Platelet Volume 11.5 fl (7.4-10.4); Monocytes # 0.3 K/mm3 (0.1-1.0); Monocytes % 2.1 % (1.7-9.3); Neutrophils # 11.5 K/mm3 (1.8-7.8); Neutrophils % 83.4 % (37.0-80.0); Platelet Count 156 K/mm3 (142-424); Red Blood Count 3.94 M/mm3 (4.20-5.40); Red Cell Distribution Width 14.8 % (11.5-17.5); White Blood Count 13.8 K/mm3 (4.8-10.8)
[2019-08-13 09:28] LABS: Hemoglobin 11.2 g/dL (12.2-16.2)
[2019-08-13 09:36] LABS: Albumin Level 2.1 g/dL (3.4-5.0); Albumin/Globulin Ratio 0.5 (1.1-1.8); Bilirubin,Total 0.6 mg/dL (0.2-1.0); Calcium 7.4 mg/dL (8.5-10.1); Globulin 4.1 gm/dl (1.3-3.2); Total Protein,Serum 6.2 g/dL (6.4-8.2)
[2019-08-13 09:38] LABS: Anion Gap 14.9 mEq/L (5-15)
--- NOTE | 2019-08-13 11:03 | Pharmacy Consult Notes ---
- Pharmacy Consult Date: 08/13/19 Time: 11:01 Referring provider: DR. SALAMANCA Reason for Consult:: VANCOMYCIN DOSING Allergies and ADEs:: Allergies Allergy/AdvReac Type Severity Reaction Status Date / Time acetaminophen Allergy Unknown Verified 08/12/19 08:12 [From Percogesic] allergy reaction diphenhydramine Allergy Unknown Verified 08/12/19 08:12 [From Percogesic] allergy reaction Penicillins Allergy Unknown Verified 08/12/19 08:12 allergy reaction phenyltoloxamine Allergy Unknown Verified 08/12/19 08:12 [From Percogesic] allergy reaction Home Medications:: Home Medications Medication Instructions Recorded Confirmed Type Acetaminophen 500 mg PO BID 08/11/19 08/11/19 History Ascorbic Acid [Vitamin C] 500 mg PO DAILY 08/11/19 08/11/19 History Lactulose [Lactulose 10gm/15ml 30 ml PO DAILY 08/11/19 08/11/19 History Oral Soln] Loratadine [Claritin] 10 mg PO DAILY 08/11/19 08/11/19 History Mirtazapine 7.5 mg PO HS 08/11/19 08/11/19 History Height: 1.73 m Weight: 61.802 kg Laboratory Results:: Laboratory Results - last 24 hr 08/12/19 09:31: Hgb 12.8 D, Total Counted 100, Neutrophils % (Manual) 88 H, Lymphocytes % (Manual) 11, Myelocytes % 1, Platelet Estimate Normal, RBC Morphology Normal 08/12/19 17:11: Sodium 175 H*, Potassium 3.1 L, Chloride 138 H, Carbon Dioxide 24, Anion Gap 16.1 H, BUN 57 H, Creatinine 1.28 H, Estimated Creat Clear 28, Estimated GFR 39 L, Est GFR ( Amer) 48 L, Glucose 98 D, Calcium 7.8 L, Total Bilirubin 0.6, AST 32, ALT 21, Alkaline Phosphatase 81, Total Protein 6.7, Albumin 2.2 L, Globulin 4.5 H, Albumin/Globulin Ratio 0.5 L 08/12/19 21:40: POC Glucose 118 H 08/13/19 01:10: Sodium 175 H*, Potassium 3.1 L, Chloride 138 H, Carbon Dioxide 23, Anion Gap 17.1 H, BUN 48 H, Creatinine 1.27 H, Estimated Creat Clear 29, Estimated GFR 40 L, Est GFR ( Amer) 48 L, Glucose 167 H D, Calcium 7.4 L, Total Bilirubin 0.5, AST 30, ALT 20, Alkaline Phosphatase 71, Total Protein 6.3 L, Albumin 2.1 L, Globulin 4.2 H, Albumin/Globulin Ratio 0.5 L 08/13/19 09:10: WBC 13.8 H D, RBC 3.94 L, Hgb 11.2 L D, Hct 37.7, MCV 95.9, MCH 28.5, MCHC 29.7 L, RDW 14.8, Plt Count 156, MPV 11.5 H, Neut % (Auto) 83.4 H, Lymph % (Auto) 12.8, [place] % (Auto) 2.1, Eos % (Auto) 1.4, Baso % (Auto) 0.2, Neut # (Auto) 11.5 H, Lymph # (Auto) 1.8, [place] # (Auto) 0.3, Eos # (Auto) 0.2, Baso # (Auto) 0.0 08/13/19 09:10: Sodium 173 H*, Potassium 2.9 L*, Chloride 138 H, Carbon Dioxide 23, Anion Gap 14.9, BUN 42 H, Creatinine 1.19 H, Estimated Creat Clear 31, Estimated GFR 43 L, Est GFR ( Amer) 52 L, Glucose 141 H, Calcium 7.4 L, Total Bilirubin 0.6, AST 34, ALT 23, Alkaline Phosphatase 73, Total Protein 6.2 L, Albumin 2.1 L, Globulin 4.1 H, Albumin/Globulin Ratio 0.5 L Medical History: Reports:: Hyperlipidemia, Hypertension Denies:: Diabetes Mellitus Type 1, Diabetes Mellitus Type 2 Assessment and Plan (1) Alzheimer disease Current visit: Yes Status: Chronic Qualifiers: Alzheimer's disease onset: late-onset Dementia behavioral disturbance: with behavioral disturbance Qualified Code(s): G30.1 - Alzheimer's disease with late onset; F02.81 - Dementia in other diseases classified elsewhere with behavioral disturbance Category: Medical Code(s): G30.9 - Alzheimer's disease, unspecified; F02.80 - Dementia in other diseases classified elsewhere without behavioral disturbance (2) Hyperchloremia Current visit: Yes Status: Acute Category: Medical Code(s): E87.8 - Other disorders of electrolyte and fluid balance, not elsewhere classified (3) Acute kidney failure Current visit: Yes Status: Acute Qualifiers: Acute renal failure type: unspecified Qualified Code(s): N17.9 - Acute kidney failure, unspecified Category: Medical Code(s): N17.9 - Acute kidney failure, unspecified (4) Dehydration Current visit: Yes Status: Acute Category: Medical Code(s): E86.0 - Dehydration (5) Hypernatremia Current visit: Yes Status: Acute Category: Medical Code(s): E87.0 - Hyper osmolality and hypernatremia (6) Severe sepsis Current visit: Yes Status: Acute Category: Medical Code(s): A41.9 - Sepsis, unspecified organism; R65.20 - Severe sepsis without septic shock (7) Urinary tract infection Current visit: Yes Status: Acute Qualifiers: Urinary tract infection type: site unspecified Hematuria presence: without hematuria Qualified Code(s): N39.0 - Urinary tract infection, site not specified Category: Medical Code(s): N39.0 - Urinary tract infection, site not specified - Assessment and plan all Dx Assessment and Plan for all problems:: BASED ON PATIENT'S FACTORS, RECOMMENDED PATIENT RECEIVE VANCOMYCIN 1000 MG Q36H AT THIS TIME. LAST DOSE WAS ~2100 ON 08/12/19. SCHEDULING NEXT DOSE FOR 0900 ON 08/14/19.
--- NOTE | 2019-08-13 19:44 | Progress Note ---
Internal Medicine - PN: Subj *Date: 08/13/19 *Time: 10:00 Interval history: Ms. Knapp remained stable overnight. Having some fluctuation in blood pressure with mild hypertension but no change clinically. Opening eyes spontaneously today, breathing continues to be at baseline labored. Afebrile, nonverbal, sleeping on exam. Family at bedside today including . Extensive discussion about patient's current end stage Alzheimer Dx and it's life limiting diagnosis. Still showing no interest in p.o. intake. Roman catheter draining turbid yellow urine. does not appear to be in acute pain. Left hand in bandage with stable edema. Exam Vital signs and Labs for Last 24 Hours: Temp Pulse Resp BP Pulse Ox 99.0 F 82 28 H 173/75 H 100 08/13/19 18:00 08/13/19 18:00 08/13/19 18:00 08/13/19 18:00 08/13/19 18:00 Laboratory Results - last 24 hr 08/12/19 21:40: POC Glucose 118 H 08/13/19 01:10: Sodium 175 H*, Potassium 3.1 L, Chloride 138 H, Carbon Dioxide 23, Anion Gap 17.1 H, BUN 48 H, Creatinine 1.27 H, Estimated Creat Clear 29, Estimated GFR 40 L, Est GFR ( Amer) 48 L, Glucose 167 H D, Calcium 7.4 L, Total Bilirubin 0.5, AST 30, ALT 20, Alkaline Phosphatase 71, Total Protein 6.3 L, Albumin 2.1 L, Globulin 4.2 H, Albumin/Globulin Ratio 0.5 L 08/13/19 09:10: WBC 13.8 H D, RBC 3.94 L, Hgb 11.2 L D, Hct 37.7, MCV 95.9, MCH 28.5, MCHC 29.7 L, RDW 14.8, Plt Count 156, MPV 11.5 H, Neut % (Auto) 83.4 H, Lymph % (Auto) 12.8, [place] % (Auto) 2.1, Eos % (Auto) 1.4, Baso % (Auto) 0.2, Neut # (Auto) 11.5 H, Lymph # (Auto) 1.8, [place] # (Auto) 0.3, Eos # (Auto) 0.2, Baso # (Auto) 0.0 08/13/19 09:10: Sodium 173 H*, Potassium 2.9 L*, Chloride 138 H, Carbon Dioxide 23, Anion Gap 14.9, BUN 42 H, Creatinine 1.19 H, Estimated Creat Clear 31, Estimated GFR 43 L, Est GFR ( Amer) 52 L, Glucose 141 H, Calcium 7.4 L, Total Bilirubin 0.6, AST 34, ALT 23, Alkaline Phosphatase 73, Total Protein 6.2 L, Albumin 2.1 L, Globulin 4.1 H, Albumin/Globulin Ratio 0.5 L I & O for Last 24 hours: Intake & Output 08/10/19 08/11/19 08/12/19 08/13/19 23:59 23:59 23:59 23:59 Intake Total 536 / 721 3056 / 3118 2562 / 2562 Output Total 625 / 685 1866 / 1916 1075 / 1075 Balance -89 / 36 1190 / 1202 1487 / 1487 Weight 60.328 kg 62 kg Microbiology Reports for the Last 24 Hours: Microbiology 08/11/19 14:30 Blood Blood Culture - Preliminary NO GROWTH AFTER 48 HOURS 08/11/19 14:30 Blood Blood Culture - Preliminary NO GROWTH AFTER 48 HOURS 08/11/19 14:20 Hand,Left - Wound Gram Stain - Final 08/11/19 14:20 Hand,Left - Wound Wound Culture - Final Staphylococcus epidermidis 08/11/19 14:17 Urine,Catheterized Urine Culture - Final Escherichia coli Narrative: - Constitutional mild distress, cachectic, chronically ill appearing, disheveled, obtunded - *Routine HEENT Exam Pupils equal and round, sluggish with minimal response to bright light, loss of bitemporal fat and periorbital fat. Mucous membranes dry - *Routine Neck Exam Present: supple. Absent: lymphadenopathy - *Routine Respiratory Exam Present: CTA bilaterally. Absent: rhonchi, wheezes, crackles; bases remain clear - *Routine Cardiovascular Exam Present: tachycardia. Absent: murmur - *Routine Abdominal Exam Present: soft, normoactive bowel sounds, tenderness (Crohn's with palpation diffusely) - *Routine Extremities Exam Present: edema (Trace). Absent: cyanosis, clubbing Comments: Large blister and palm of left hand with serous fluid draining. No significant change from initial exam. Finger swollen on left hand with slight discoloration of distal pointer and ring finger - *Routine Skin Exam Present: dry, pallor, warm. Absent: rash - *Routine Neurological Exam Present: altered mental status; Intermittent tremor in right hand no focalization to, painful stimuli, spontansous eye opening, GCS 4 (2,1,1) Assessment and Plan (1) Alzheimer disease Current visit: Yes Status: Chronic Qualifiers: Alzheimer's disease onset: late-onset Dementia behavioral disturbance: with behavioral disturbance Qualified Code(s): G30.1 - Alzheimer's disease with late onset; F02.81 - Dementia in other diseases classified elsewhere with behavioral disturbance Category: Medical Code(s): G30.9 - Alzheimer's disease, unspecified; F02.80 - Dementia in other diseases classified elsewhere without behavioral disturbance (2) Hyperchloremia Current visit: Yes Status: Acute Category: Medical Code(s): E87.8 - Other disorders of electrolyte and fluid balance, not elsewhere classified (3) Acute kidney failure Current visit: Yes Status: Acute Qualifiers: Acute renal failure type: unspecified Qualified Code(s): N17.9 - Acute kidney failure, unspecified Category: Medical Code(s): N17.9 - Acute kidney failure, unspecified (4) Dehydration Current visit: Yes Status: Acute Category: Medical Code(s): E86.0 - Dehydration (5) Hypernatremia Current visit: Yes Status: Acute Category: Medical Code(s): E87.0 - Hyperosmolality and hypernatremia (6) Severe sepsis Current visit: Yes Status: Acute Category: Medical Code(s): A41.9 - Sepsis, unspecified organism; R65.20 - Severe sepsis without septic shock (7) Urinary tract infection Current visit: Yes Status: Acute Qualifiers: Urinary tract infection type: site unspecified Hematuria presence: without hematuria Qualified Code(s): N39.0 - Urinary tract infection, site not specified Category: Medical Code(s): N39.0 - Urinary tract infection, site not specified (8) Edema of left forearm Current visit: Yes Status: Acute Category: Medical Code(s): R60.9 - Edema, unspecified POA. left hand and forearm edematous with blistering on palm of hand. unclear etiology, though suspect injury due to patient laying on her hand/arm causing tissue hypoperfusion. Vancomycin initiated for possible blister infection with staph. - Assessment and plan all Dx Assessment and Plan for all problems:: critically ill 89 yo F with stage 7 alzheimer dx. GOC discussion with family in regard to disposition. Will continue aggressive repletion of free water deficit and correction of electrolyte allergies. Continue antibiotics for UTI and possible infection of the left hand. Once sodium in a more stable state, will discharge back to [facility] with hospice like care. We will consult hospice tomorrow for possible discharge under their care at that time. Plan to discuss various options with family including admission to hospice versus us continuing to manage patient at the skilled nursing and providing palliative style care. Continues to require ICU level care given severe hypernatremia. Will de- escalate to stepdown care tomorrow if continues to have steady decline without complication in her electrolyte imbalances. CODE STATUS DNR. N.p.o. at this time.
[2019-08-13 20:46] LABS: Calcium 7.5 mg/dL (8.5-10.1)
[2019-08-13 20:49] LABS: Anion Gap 16.8 mEq/L (5-15)
[2019-08-14 06:02] LABS: Basophils % 0.3 % (0.1-2.0); Eosinophils # 0.4 K/mm3 (0.0-0.4); Eosinophils % 2.7 % (0.1-12.0); Hematocrit 38.7 % (37.0-47.0); Lymphocytes # 2.2 K/mm3 (0.7-4.5); Lymphocytes % 16.3 % (10-50); Mean Corpuscular Volume 94.8 fl (81-99); Mean Platelet Volume 10.4 fl (7.4-10.4); Monocytes # 0.3 K/mm3 (0.1-1.0); Monocytes % 2.2 % (1.7-9.3); Neutrophils # 10.6 K/mm3 (1.8-7.8); Neutrophils % 78.6 % (37.0-80.0); Platelet Count 133 K/mm3 (142-424); Red Blood Count 4.08 M/mm3 (4.20-5.40); Red Cell Distribution Width 14.8 % (11.5-17.5); White Blood Count 13.5 K/mm3 (4.8-10.8)
[2019-08-14 06:21] LABS: Calcium 7.8 mg/dL (8.5-10.1); Phosphorous 2.9 mg/dL (2.4-4.9)
[2019-08-14 06:30] LABS: Anion Gap 15.5 mEq/L (5-15)
--- NOTE | 2019-08-14 13:46 | Progress Note ---
Internal Medicine - PN: Subj *Date: 08/14/19 *Time: 08:15 Interval history: Stable overnight. Somewhat increased mentation this morning and alertness. Patient told me by on exam. Disoriented to person place and time however. Not following commands. Family at bedside. Electrolytes slowly improving however still significantly elevated. No p.o. intake. No bowel movement. Roman remains in place. Exam Vital signs and Labs for Last 24 Hours: Temp Pulse Resp BP Pulse Ox 98.2 F 76 20 161/74 H 100 08/14/19 06:45 08/14/19 13:00 08/14/19 13:00 08/14/19 13:00 08/14/19 13:00 Laboratory Results - last 24 hr 08/13/19 20:15: Sodium 174 H*, Potassium 3.8 D, Chloride 138 H, Carbon Dioxide 23, Anion Gap 16.8 H, BUN 35 H, Creatinine 1.14 H, Estimated Creat Clear 33, Estimated GFR 45 L, Est GFR ( Amer) 54 L, Glucose 117 H, Calcium 7.5 L, Phosphorus 3.0, Magnesium 2.5 H D 08/14/19 05:40: WBC 13.5 H, RBC 4.08 L, Hgb 12.0 L, Hct 38.7, MCV 94.8, MCH 29.4, MCHC 31.0 L, RDW 14.8, Plt Count 133 L, MPV 10.4, Neut % (Auto) 78.6, Lymph % (Auto) 16.3, Hale % (Auto) 2.2, Eos % (Auto) 2.7, Baso % (Auto) 0.3, Neut # (Auto) 10.6 H, Lymph # (Auto) 2.2, Hale # (Auto) 0.3, Eos # (Auto) 0.4, Baso # (Auto) 0.0 08/14/19 05:40: Sodium 172 H*, Potassium 3.5, Chloride 138 H, Carbon Dioxide 22, Anion Gap 15.5 H, BUN 31 H, Creatinine 1.04 H, Estimated Creat Clear 36, Estimated GFR 50 L, Est GFR ( Amer) 60, Glucose 95, Calcium 7.8 L, Phosphorus 2.9, Magnesium 2.5 H I & O for Last 24 hours: Intake & Output 08/11/19 08/12/19 08/13/19 08/14/19 23:59 23:59 23:59 23:59 Intake Total 536 / 721 3056 / 3118 3094 / 3206 635 / 635 Output Total 625 / 685 1866 / 1916 1359 / 1379 465 / 465 Balance -89 / 36 1190 / 1202 1735 / 1827 170 / 170 Weight 60.328 kg 62 kg 63.56 kg Microbiology Reports for the Last 24 Hours: Microbiology 08/11/19 14:30 Blood Blood Culture - Preliminary NO GROWTH AFTER 48 HOURS 08/11/19 14:30 Blood Blood Culture - Preliminary NO GROWTH AFTER 48 HOURS 08/11/19 14:20 Hand,Left - Wound Gram Stain - Final 08/11/19 14:20 Hand,Left - Wound Wound Culture - Final Staphylococcus epidermidis Narrative: - Constitutional mild distress, cachectic, chronically ill appearing, disheveled, obtunded - *Routine HEENT Exam Pupils equal and round, sluggish with minimal response to bright light, loss of bitemporal fat and periorbital fat. Mucous membranes dry - *Routine Neck Exam Present: supple. Absent: lymphadenopathy - *Routine Respiratory Exam Present: CTA bilaterally. Absent: rhonchi, wheezes, crackles; bases remain clear - *Routine Cardiovascular Exam Present: tachycardia. Absent: murmur - *Routine Abdominal Exam Present: soft, normoactive bowel sounds, tenderness (Crohn's with palpation diffusely) - *Routine Extremities Exam Present: edema (Trace). Absent: cyanosis, clubbing Comments: Large blister and palm of left hand with serous fluid draining. No significant change from initial exam. Finger swollen on left hand with slight discoloration of distal pointer and ring finger - *Routine Skin Exam Present: dry, pallor, warm. Absent: rash - *Routine Neurological Exam Present: disoriented to person, place and time, Intermittent tremor in right hand, focalizes to pain, spontansous eye opening, making illegible sounds with occasional word. Assessment and Plan (1) Alzheimer disease Current visit: Yes Status: Chronic Qualifiers: Alzheimer's disease onset: late-onset Dementia behavioral disturbance: with behavioral disturbance Qualified Code(s): G30.1 - Alzheimer's disease with late onset; F02.81 - Dementia in other diseases classified elsewhere with behavioral disturbance Category: Medical Code(s): G30.9 - Alzheimer's disease, unspecified; F02.80 - Dementia in other diseases classified elsewhere without behavioral disturbance (2) Hyperchloremia Current visit: Yes Status: Acute Category: Medical Code(s): E87.8 - Other disorders of electrolyte and fluid balance, not elsewhere classified (3) Acute kidney failure Current visit: Yes Status: Acute Qualifiers: Acute renal failure type: unspecified Qualified Code(s): N17.9 - Acute kidney failure, unspecified Category: Medical Code(s): N17.9 - Acute kidney failure, unspecified (4) Dehydration Current visit: Yes Status: Acute Category: Medical Code(s): E86.0 - Dehydration (5) Hypernatremia Current visit: Yes Status: Acute Category: Medical Code(s): E87.0 - Hyperosmolality and hypernatremia (6) Severe sepsis Current visit: Yes Status: Acute Category: Medical Code(s): A41.9 - Sepsis, unspecified organism; R65.20 - Severe sepsis without septic shock Severe sepsis with organ dysfunction consisting of renal failure and hyp ernatremia along with cognitive dysfunction/obtundation. Source of infection from urinary tract and left hand wound which was positive for MRSA. UTI positive for E. coli. (7) Urinary tract infection Current visit: Yes Status: Acute Qualifiers: Urinary tract infection type: site unspecified Hematuria presence: without hematuria Qualified Code(s): N39.0 - Urinary tract infection, site not specified Category: Medical Code(s): N39.0 - Urinary tract infection, site not specified (8) Edema of left forearm Current visit: Yes Status: Acute Category: Medical Code(s): R60.9 - Edema, unspecified - Assessment and plan all Dx Assessment and Plan for all problems:: critically ill 89 yo F with stage 7 alzheimer dx. Hospice consulted. Continue Free water replacement. Marginal improvement in alertness and responsiveness. Continue electrolyte repletion. Continue antibiotics for UTI and possible infection of the left hand. Once sodium in a more normal range, and to discharge back to [facility] with hospice. Consulted hospice today. They are assessing patient for admission. She is previously had hospice therefore awaiting attending assessment for acceptance. de-escalate to stepdown care Labs every 12 hrs CODE STATUS DNR. N.p.o. at this time.
--- NOTE | 2019-08-14 18:35 | Electrocardiograph Report ---
APPROVED REPORT Exam: Resting ECG HR:94 bpm ECG Measurements Heart Rate 94 AXES ID 102 P 29 QRSd 76 QRS 6 QT 398 T91 QTc 497 <Conclusion> Sinus rhythm with short ID Minimal voltage criteria for LVH, may be normal variant,Consider Old Inferior [place] Abnormal ECG Electronically signed by : Florin Clark, 08/14/2019 18:35:45
[2019-08-14 20:28] LABS: Calcium 8.2 mg/dL (8.5-10.1); Phosphorous 2.4 mg/dL (2.4-4.9)
[2019-08-14 20:48] LABS: Anion Gap 14.8 mEq/L (5-15)
[2019-08-15 06:35] LABS: Anion Gap 14.7 mEq/L (5-15); Calcium 7.9 mg/dL (8.5-10.1)
--- NOTE | 2019-08-15 07:42 | Progress Note ---
Internal Medicine - PN: Subj *Date: 08/15/19 *Time: 07:42 Exam Vital signs and Labs for Last 24 Hours: Temp Pulse Resp BP Pulse Ox 98.1 F 79 25 H 125/62 98 08/15/19 04:00 08/15/19 06:00 08/15/19 04:00 08/15/19 06:00 08/15/19 06:00 Laboratory Results - last 24 hr 08/14/19 20:02: Sodium 167 H*, Potassium 2.8 L*, Chloride 133 H, Carbon Dioxide 22, Anion Gap 14.8, BUN 25 H, Creatinine 0.95, Estimated Creat Clear 38, Estimated GFR 55 L, Est GFR ( Amer) 67, Glucose 113 H, Calcium 8.2 L, Phosphorus 2.4, Magnesium 2.3 H 08/15/19 05:47: Sodium 160 H*, Potassium 3.7 D, Chloride 129 H, Carbon Dioxide 20 L, Anion Gap 14.7, BUN 23 H, Creatinine 0.93, Estimated Creat Clear 38, Estimated GFR 57 L, Est GFR ( Amer) 69, Glucose 153 H D, Calcium 7.9 L, Magnesium 2.2 I & O for Last 24 hours: Intake & Output 08/12/19 08/13/19 08/14/19 08/15/19 23:59 23:59 23:59 23:59 Intake Total 3056 / 3118 3094 / 3206 1882.333 / 2082.333 200 / 200 Output Total 1866 / 1916 1359 / 1379 1365 / 1365 Balance 1190 / 1202 1735 / 1827 517.333 / 717.333 200 / 200 Weight 62 kg 63.56 kg 65.856 kg Assessment and Plan (1) Alzheimer disease Current visit: Yes Status: Chronic Qualifiers: Alzheimer's disease onset: late-onset Dementia behavioral disturbance: with behavioral disturbance Qualified Code(s): G30.1 - Alzheimer's disease with late onset; F02.81 - Dementia in other diseases classified elsewhere with behavioral disturbance Category: Medical Code(s): G30.9 - Alzheimer's disease, unspecified; F02.80 - Dementia in other diseases classified elsewhere without behavioral disturbance (2) Hyperchloremia Current visit: Yes Status: Acute Category: Medical Code(s): E87.8 - Other disorders of electrolyte and fluid balance, not elsewhere classified (3) Acute kidney failure Current visit: Yes Status: Acute Qualifiers: Acute renal failure type: unspecified Qualified Code(s): N17.9 - Acute kidney failure, unspecified Category: Medical Code(s): N17.9 - Acute kidney failure, unspecified (4) Dehydration Current visit: Yes Status: Acute Category: Medical Code(s): E86.0 - Dehydration (5) Hypernatremia Current visit: Yes Status: Acute Category: Medical Code(s): E87.0 - Hyperosmolality and hypernatremia (6) Severe sepsis Current visit: Yes Status: Acute Category: Medical Code(s): A41.9 - Sepsis, unspecified organism; R65.20 - Severe sepsis without septic shock (7) Urinary tract infection Current visit: Yes Status: Acute Qualifiers: Urinary tract infection type: site unspecified Hematuria presence: without hematuria Qualified Code(s): N39.0 - Urinary tract infection, site not specified Category: Medical Code(s): N39.0 - Urinary tract infection, site not specified (8) Edema of left forearm Current visit: Yes Status: Acute Category: Medical Code(s): R60.9 - Edema, unspecified The patient's infection will respond to the chosen ABx?: Yes Is the patient receiving the right drug, dose, and route?: Yes Could a more targeted ABx be ordered?: No (STAPH EPI SENSITIVE TO VANC AND E COLI SENSITIVE TO ROCEPHIN)
--- NOTE | 2019-08-15 09:47 | Progress Note ---
Internal Medicine - PN: Subj *Date: 08/15/19 *Time: 08:45 Interval history: Continues to have improvement in her sodium, 160 this morning on labs. Opens eyes to voice. Still has labored breathing though no cough or oxygen requirement. Afebrile. Hemodynamically stable. No family at bedside this morning on rounds. Was assessed patient yesterday, she meets criteria for admission to hospice at time of discharge. Exam Vital signs and Labs for Last 24 Hours: Temp Pulse Resp BP Pulse Ox 98.4 F 79 30 H 120/94 H 100 08/15/19 08:00 08/15/19 08:00 08/15/19 08:00 08/15/19 08:00 08/15/19 08:00 Laboratory Results - last 24 hr 08/14/19 20:02: Sodium 167 H*, Potassium 2.8 L*, Chloride 133 H, Carbon Dioxide 22, Anion Gap 14.8, BUN 25 H, Creatinine 0.95, Estimated Creat Clear 38, Estimated GFR 55 L, Est GFR ( Amer) 67, Glucose 113 H, Calcium 8.2 L, Phosphorus 2.4, Magnesium 2.3 H 08/15/19 05:47: Sodium 160 H*, Potassium 3.7 D, Chloride 129 H, Carbon Dioxide 20 L, Anion Gap 14.7, BUN 23 H, Creatinine 0.93, Estimated Creat Clear 38, Estimated GFR 57 L, Est GFR ( Amer) 69, Glucose 153 H D, Calcium 7.9 L, Magnesium 2.2 I & O for Last 24 hours: Intake & Output 08/12/19 08/13/19 08/14/19 08/15/19 23:59 23:59 23:59 23:59 Intake Total 3056 / 3118 3094 / 3206 1882.333 / 2082.333 200 / 200 Output Total 186 / 1916 1359 / 1379 1365 / 1365 Balance 1190 / 1202 1735 / 1827 517.333 / 717.333 200 / 200 Weight 62 kg 63.56 kg 65.856 kg Narrative: - Constitutional mild distress, cachectic, chronically ill appearing, disheveled, obtunded - *Routine HEENT Exam Pupils equal and round, sluggish with minimal response to bright light, loss of bitemporal fat and periorbital fat. Mucous membranes dry - *Routine Neck Exam Present: supple. Absent: lymphadenopathy - *Routine Respiratory Exam Present: Good air movement bilaterally, faint crackles posterior lung field bases bilaterally, respiratory rate mid 20s, no wheeze or rhonchi - *Routine Cardiovascular Exam Present: tachycardia. Absent: murmur - *Routine Abdominal Exam Present: soft, normoactive bowel sounds, tenderness (Crohn's with palpation diffusely) - *Routine Extremities Exam Present: edema (Trace). Absent: cyanosis, clubbing Comments: Large blister and palm of left hand with serous fluid draining. No significant change from initial exam. Finger swollen on left hand with slight discoloration of distal pointer and ring finger - *Routine Skin Exam Present: dry, pallor, warm. Absent: rash - *Routine Neurological Exam Present: disoriented to person, place and time, opens eyes to voice this morning, occasional moaning. Did not follow commands Assessment and Plan (1) Alzheimer disease Current visit: Yes Status: Chronic Qualifiers: Alzheimer's disease onset: late-onset Dementia behavioral disturbance: with behavioral disturbance Qualified Code(s): G30.1 - Alzheimer's disease with late onset; F02.81 - Dementia in other diseases classified elsewhere with behavioral disturbance Category: Medical Code(s): G30.9 - Alzheimer's disease, unspecified; F02.80 - Dementia in other diseases classified elsewhere without behavioral disturbance (2) Hyperchloremia Current visit: Yes Status: Acute Category: Medical Code(s): E87.8 - Other disorders of electrolyte and fluid balance, not elsewhere classified (3) Acute kidney failure Current visit: Yes Status: Acute Qualifiers: Acute renal failure type: unspecified Qualified Code(s): N17.9 - Acute kidney failure, unspecified Category: Medical Code(s): N17.9 - Acute kidney failure, unspecified (4) Dehydration Current visit: Yes Status: Acute Category: Medical Code(s): E86.0 - Dehydration (5) Hypernatremia Current visit: Yes Status: Acute Category: Medical Code(s): E87.0 - Hyperosmolality and hypernatremia (6) Severe sepsis Current visit: Yes Status: Acute Category: Medical Code(s): A41.9 - Sepsis, unspecified organism; R65.20 - Severe sepsis without septic shock (7) Urinary tract infection Current visit: Yes Status: Acute Qualifiers: Urinary tract infection type: site unspecified Hematuria presence: without hematuria Qualified Code(s): N39.0 - Urinary tract infection, site not specified Category: Medical Code(s): N39.0 - Urinary tract infection, site not specified (8) Edema of left forearm Current visit: Yes Status: Acute Category: Medical Code(s): R60.9 - Edema, unspecified - Assessment and plan all Dx Assessment and Plan for all problems:: Continue fluid resuscitation. Will administer an additional liter of D5 quarter normal today to improve sodium goal of 12 mEq a day. Anticipate 1 more day of admission to improve sodium to approximately 150 or better with goal of discharge tomorrow back to [place] for admission to hospice. Antibiotics for UTI will be stopped at time of discharge. We will continue wound care with topical antibiotics for the left hand but no more IV antibiotics. Feeds for comfort but high risk of aspiration given altered mental status. CODE STATUS DNR.
[2019-08-15 18:47] LABS: Anion Gap 4.5 mEq/L (5-15); Calcium 8.4 mg/dl (8.4-10.2)
[2019-08-16 07:57] LABS: Calcium 8.1 mg/dl (8.4-10.2)
[2019-08-16 07:58] LABS: Anion Gap 10.5 mEq/L (5-15)
--- NOTE | 2019-08-16 08:03 | Discharge Summary ---
General - General Admission date:: 08/11/19 Discharge date: 08/16/19 HPI HPI: Patient was assessed on 08/11/2019 at 6:15 PM. Ms. Lan is an 89-year-old female who resides at [place] and has severely advanced Alzheimer's. She presented to the ER at the request of her due to obtundation and altered breathing. Of note she is dependent on nursing and her for full ADL support including feeding and drinking. Her daughters and son-in-law are at bedside on interview in the ER. Family reports that the patient has become more altered over the past week with change in her breathing pattern, less responsive to stimuli, and showing significant decline. Upon arrival to the ER she was noted to have severely elevated sodium of 181 and chloride of 140. Free water deficit of approximately 8 L. Patient is DNR and the family was very adamant that they did not want her transferred to a tertiary care center for higher level of care. They preferred for her to be admitted locally with treatment for her conditions understanding that this is not the optimal situation and she is at high risk for decline or serious complication. On my assessment she was nonresponsive to verbal commands. Groaned with abdominal exam but otherwise did not withdraw or localize to painful stimuli. Pupils poorly reactive, not fixed or dilated either. Further review of ER work-up shows that she has severe sepsis with elevated lactate, acute renal failure, concern for UTI, market hypernatremia/hyperchloremia, and severe dehydration. Given patient's baseline end-stage Alzheimer's, I had a discussion with family about goals of care and this likely being part of the dying process. They stated understanding and wanted to initially treat her sepsis with antibiotics and hypernatremia with fluid resuscitation. Admitted to ICU for further management and close observation of electrolyte correction. Hospital Course Hospital Course: Patient was admitted, placed on IV antibiotics for UTI and slow IV fluid correction of her significant hyponatremia. She did improve very nicely in a very slow but stepwise fashion in regards to her sodium levels and came down into the 160s and this morning is actually 152. This has not impacted her alertness level significantly however, and she continues to be very somnolent. Please see Dr. Daniel's notes about hospice care involvement. The patient remains very appropriate for hospice care, is terminally ill and I anticipate a quick demise. Patient will be sent back to the [facility] today. Hospice care will be involved. We will not be using any kind of p.o. or IV antibiotics for her hand wound which is growing staph epi or her urinary tract infection. We will do topical mupirocin for the hand wound and cover it with a bandage 3 ti mes daily. We will no longer do lab draws, as patient is exclusively palliative care. Family wishes comfort feedings and this is certainly reasonable although they are aware of the high aspiration risk and the risk of sudden demise based on choking episodes. Prognosis is poor. Objective Vital signs: Temp Pulse Resp BP Pulse Ox 99.2 F 80 26 H 179/74 H 100 08/16/19 06:00 08/16/19 06:00 08/16/19 06:00 08/16/19 06:00 08/16/19 06:00 Narrative: Patient is responsive to deep tactile stimuli. Nonverbal. Oropharynx clear. Heart rate regular. Lungs have poor air movement, scattered rhonchi, abdomen soft and scaphoid. Left hand wrapped in bandage. Draining clear fluid from the blister. Extremities warm and well-perfused but poor skin turgor. Roman catheter draining clear yellow urine. Neurologic exam unable to be assessed because of her diminished mental status. Results Labs on day of discharge: Labs from last 24 hours 08/15/19 08/15/19 20:39 18:11 Sodium 152 H* Potassium 3.5 Chloride 131 H Carbon Dioxide 20 L Anion Gap 4.5 L BUN 18 H Creatinine 0.80 Estimated Creat Clear 40 Estimated GFR 68 Est GFR ( Amer) 82 Glucose 108 H Calcium 8.4 Magnesium 2.3 Vancomycin Trough 5.8 Preliminary micro results at discharge 08/11/19 14:30 Blood Culture - Preliminary Blood NO GROWTH AFTER 48 HOURS 08/11/19 14:30 Blood Culture - Preliminary Blood NO GROWTH AFTER 48 HOURS DS: Diagnosis - Discharge Diagnosis (1) Alzheimer disease Status: Chronic (2) Hyperchloremia Status: Chronic (3) Acute kidney failure Status: Chronic (4) Dehydration Status: Chronic (5) Hypernatremia Status: Chronic (6) Severe sepsis Status: Acute (7) Urinary tract infection Status: Acute (8) Edema of left forearm Status: Acute Discharge Plan - Patient Discharge Instructions ACTIVITY: Continue current activity DIET: continue same diet Patient Instructions: Kidney Failure, Dehydration, Methicillin-Resistant Staph Infection, DI for Kidney Failure, DI for Dehydration -- Adult, DI for Urinary Tract Infection (UTI), DI for Hypernatremia, Hypernatremia-Adult - Follow up Plan Disposition: Hospice - Medical Facility Home Medications: Home Medications Medication Instructions Recorded Confirmed Type Acetaminophen 500 mg PO BID 08/11/19 08/11/19 History Ascorbic Acid [Vitamin C] 500 mg PO DAILY 08/11/19 08/11/19 History Lactulose [Lactulose 10gm/15ml 30 ml PO DAILY 08/11/19 08/11/19 History Oral Soln] Loratadine [Claritin] 10 mg PO DAILY 08/11/19 08/11/19 History Mirtazapine 7.5 mg PO HS 08/11/19 08/11/19 History Morphine Sulfate [Roxanol 20mg/mL 10 mg SL Q2HP PRN #30 ml 08/16/19 Rx 1mL oral soln UDC] Mupirocin [Bactroban 2% Ointment 1 applicatio TP TID #1 tube 08/16/19 Rx 22gm tube] Prescriptions/Medication Reconciliation: New Morphine Sulfate [Roxanol 20mg/mL 1mL oral soln UDC] 10 mg SL Q2HP PRN #30 ml PRN Reason: air hunger or pain Mupirocin [Bactroban 2% Ointment 22gm tube] 1 applicatio TP TID #1 tube Continued Acetaminophen 500 mg PO BID Discontinued Loratadine [Claritin] 10 mg PO DAILY Lactulose [Lactulose 10gm/15ml Oral Soln] 30 ml PO DAILY Ascorbic Acid [Vitamin C] 500 mg PO DAILY Mirtazapine 7.5 mg PO HS - Problem Reconciliation Problems Reviewed?: Yes
--- NOTE | 2019-08-16 10:38 | Pharmacy Consult Notes ---
- Pharmacy Consult Date: 08/16/19 Time: 10:37 Referring provider: DR. SALAMANCA Reason for Consult:: VANCOMYCIN TROUGH LEVEL Allergies and ADEs:: Allergies Allergy/AdvReac Type Severity Reaction Status Date / Time acetaminophen Allergy Unknown Verified 08/12/19 08:12 [From Percogesic] allergy reaction diphenhydramine Allergy Unknown Verified 08/12/19 08:12 [From Percogesic] allergy reaction Penicillins Allergy Unknown Verified 08/12/19 08:12 allergy reaction phenyltoloxamine Allergy Unknown Verified 08/12/19 08:12 [From Percogesic] allergy reaction Home Medications:: Home Medications Medication Instructions Recorded Confirmed Type Acetaminophen 500 mg PO BID 08/11/19 08/11/19 History Morphine Sulfate [Roxanol 20mg/mL 10 mg SL Q2HP PRN #30 ml 08/16/19 Rx 1mL oral soln UDC] Mupirocin [Bactroban 2% Ointment 1 applicatio TP TID #1 tube 08/16/19 Rx 22gm tube] Height: 1.73 m Weight: 67.132 kg Laboratory Results:: Laboratory Results - last 24 hr 08/15/19 18:11: Sodium 152 H*, Potassium 3.5, Chloride 131 H, Carbon Dioxide 20 L, Anion Gap 4.5 L, BUN 18 H, Creatinine 0.80, Estimated Creat Clear 40, Estimated GFR 68, Est GFR ( Amer) 82, Glucose 108 H, Calcium 8.4, Magnesium 2.3 08/15/19 20:39: Vancomycin Trough 5.8 08/16/19 06:45: Sodium 152 H*, Potassium 4.5 D, Chloride 127 H, Carbon Dioxide 19 L, Anion Gap 10.5, BUN 16, Creatinine 0.70, Estimated Creat Clear 40, Estimated GFR 79, Est GFR ( Amer) 95, Glucose 128 H, Calcium 8.1 L, Magnesium 2.2 Medical History: Reports:: Hyperlipidemia, Hypertension Denies:: Diabetes Mellitus Type 1, Diabetes Mellitus Type 2 Assessment and Plan (1) Alzheimer disease Current visit: Yes Status: Chronic Qualifiers: Alzheimer's disease onset: late-onset Dementia behavioral disturbance: with behavioral disturbance Qualified Code(s): G30.1 - Alzheimer's disease with late onset; F02.81 - Dementia in other diseases classified elsewhere with behavioral disturbance Category: Medical Code(s): G30.9 - Alzheimer's disease, unspecified; F02.80 - Dementia in other diseases classified elsewhere without behavioral disturbance (2) Hyperchloremia Current visit: Yes Status: Chronic Category: Medical Code(s): E87.8 - O ther disorders of electrolyte and fluid balance, not elsewhere classified (3) Acute kidney failure Current visit: Yes Status: Chronic Qualifiers: Acute renal failure type: unspecified Qualified Code(s): N17.9 - Acute kidney failure, unspecified Category: Medical Code(s): N17.9 - Acute kidney failure, unspecified (4) Dehydration Current visit: Yes Status: Chronic Category: Medical Code(s): E86.0 - Dehydration (5) Hypernatremia Current visit: Yes Status: Chronic Category: Medical Code(s): E87.0 - Hyperosmolality and hypernatremia (6) Severe sepsis Current visit: Yes Status: Acute Category: Medical Code(s): A41.9 - Sepsis, unspecified organism; R65.20 - Severe sepsis without septic shock (7) Urinary tract infection Current visit: Yes Status: Acute Qualifiers: Urinary tract infection type: site unspecified Hematuria presence: without hematuria Qualified Code(s): N39.0 - Urinary tract infection, site not specified Category: Medical Code(s): N39.0 - Urinary tract infection, site not specified (8) Edema of left forearm Current visit: Yes Status: Acute Category: Medical Code(s): R60.9 - Edema, unspecified - Assessment and plan all Dx Assessment and Plan for all problems:: BASED ON PATIENT FACTORS AND VANCOMYCIN TROUGH LEVEL LAST NIGHT, RECOMMEND CHANGING INTERVAL TO VANCOMYCIN 1 GM IV Q24H. PATIENT IS BEING TRANSFERED BACK TO [facility] TODAY.
== END 2019-08-16 13:45 | disposition hospice, inpatient (51) | DRG 640 ==
LOC: 2ND 14:14 → ER 14:14 → OBSVTOIN 17:54 → 2ND 18:59
PROVIDERS: ADMIT Internal Medicine Adolescent Medicine; ATTEND Internal Medicine Adolescent Medicine
CPT/HCPCS: 36415; 71010; 71045; 80048; 80053; 80202; 81001; 82962; 83605; 83735; 84100; 84484; 85007; 85025; 87040; 87070; 87077; 87086; 87088; 87186; 87205; 93005; 94761; 96365; 96367; 96375; 99285; C1751; J3370